=== PATIENT | female | born 1940 | race Caucasian/White ===

== ENCOUNTER 2016-07-10 09:52 | Outpatient (RCR) | payer MEDICARE ==
--- OUTSIDE RECORDS SUMMARY | 2016-05-16 10:18 | XMS REPORT | Continuity of Care Document ---
Author Author [facility] Organization [facility] Address Unknown Phone Unavailable Care Team Providers Care Media Law Faculty Member Name Role Phone SHAKIRA SERRANO MD PCP Insurance Providers Payer Name Policy Number Subscriber Name Relationship Wps Medicare [id number] Kierra Kulkarni 18 Self / Same As Patient Blue Cross [facility] Supp [id number] Kierra Kulkarni 18 Self / Same As Patient Advance Directives Directive Response Recorded Date/Time Advance Directives Yes 03/23/16 10:08am Health Care Power of Youtuber Yes 03/23/16 10:08am Organ Donor No 03/23/16 10:08am Resuscitation Status Full Code 03/23/16 10:08am Problems No problem information available. Medications Current Home Medications Medication Dose Units Route Directions Days/Qty Instructions Start Date Naproxen 500 Mg 1 Each Oral Bid - Tid Prn 60 12/01/12 Amlodipine Besylate 5 Mg 5 Mg Oral Daily 03/23/16 Potassium Chloride 10 Meq 10 Meq Oral Daily 03/23/16 Ascorbate Calcium/Bioflavonoid 1 Each 1 Each Oral Daily 03/23/16 Melatonin 5 Mg 5 Mg Oral Bedtime 03/23/16 Diphenhydramine Hcl 25 Mg 12.5 Mg Oral Bedtime 03/23/16 Calcium Citrate/Vitamin D3 1 Each 1,200 Mg Oral Daily 03/23/16 Multivitamin/Iron/Folic Acid 1 Each 1 Each Oral Daily 03/23/16 Cholecalciferol (Vitamin D3) 2,000 Unit 2,000 Unit Oral Daily Hydrocodone/Acetaminophen 1 Each 1 Each Oral Every 4HRS as needed for Pain 03/23/16 Nitrofurantoin Monohyd/M-Cryst 100 Mg 1 Tab Oral Twice A Day 10 Phenazopyridine Hcl 200 Mg 1 Tab Oral Three Times A Day as needed for Spasms 20 03/23/16 Past Home Medications Medication Directions Ordered Status Folic Acid/Mv,Fe,Other Min 1 Each Tab.chew, 1 Each Oral Daily 01/10/10 Discontinued Ascorbic Acid/Bioflavonoids 1 Tab Tablet, 1 Tab Oral Daily 01/10/10 Discontinued [Gerry Fish Oil] , 1 Ea Oral Daily 01/10/10 Discontinued [Potassium] , 10/20/11 Discontinued [Hydrocodone] , 10/20/11 Discontinued Ciprofloxacin 500 Mg Tablet, 1 Tab Oral Twice A Day 10/20/11 Discontinued Potassium Chloride (Micro K) 10 Meq Capsule.sa, 1 Each Oral Daily With Food 10/22/11 Discontinued Lorazepam (Ativan) 0.5 Mg Tablet, 1 Each Oral Three Times A Day And Prn 10/21 Discontinued Amlodipine Besylate (Norvasc 5 Mg) 5 Mg Tablet, 5 Mg Oral Daily 10/22/11 Discontinued Hydrochlorothiazide 12.5 Mg Tablet, 1 Each Oral Daily 10/22/11 Discontinued Ciprofloxacin 500 Mg Tbmp.24hr, 1 Tab Oral Twice A Day 10/22/11 Discontinued Loperamide Hcl (Imodium) 2 Mg Capsule, 1 Tab Oral As Directed 10/26/11 Discontinued Citalopram Hydrobromide 10 Mg Tablet, 1 Each Oral Daily 10/26/11 Discontinued Potassium 99 Mg Tablet, 99 Mg Oral 12/01/12 Discontinued [Bp Med] , 12/01/12 Discontinued Social History Social History Problem Response Recorded Date/Time Alcohol Use Denies Use 12/01/2012 9:45am Recreational Drug Use No 12/01/2012 9:45am Recent Foreign Travel No 03/23/2016 10:08am Recent Infectious Disease Exposure No 03/23/2016 10:08am Hospitalization with Isolation Denies 03/23/2016 1:47pm Smoking Status Current Everyday Smoker 03/23/2016 10:06am Type Used Cigars 03/23/2016 10:06am Hospitalization with Isolation Denies 03/23/2016 1:47pm Query Response Start Date Stop Date Smoking Status Current Everyday Smoker Hospital Discharge Instructions Patient Instructions Physician Instructions New, Converted, or Re-newed RX: RX on Chart Plan Keep previuos appointment Increase oral fluids for 48 hours and then as needed. Diet and Activity as tolerated. If questions or concerns contact your physician Or seek help at emergency department. Plan of Care Discharge Date 03/23/16 1:40pm Instructions/Education Provided ANESTHESIA INSTRUCTIONS POSTOP Ureteroscopic Kidney Stone Removal (DC) Prescriptions See Medication Section Functional Status Query Response Date Recorded Patient Orientation Person Place Time Situation March 23, 2016 1:47pm Allergies, Adverse Reactions, Alerts No known allergies. Immunizations No immunization records. Vital Signs Acute Vital Signs Vital Response Date/Time Temperature (Fahrenheit) 97.7 degrees F (97.6 - 99.5) 03/23/2016 1:40pm Temperature (Calculated Celsius) 36.46820 degrees C (36.4 - 37.5) 03/23/2016 1:25pm Temperature Source Temporal 03/23/2016 1:40pm Pulse Rate (adult) 74 bpm (60 - 90) 03/23/2016 1:40pm Respiratory Rate 18 bpm (12 - 24) 03/23/2016 1:40pm O2 Sat by Pulse Oximetry 98 % (88 - 100) 03/23/2016 1:40pm Blood Pressure 150/76 mm Hg 03/23/2016 1:40pm Blood Pressure Mean 110 mm Hg 03/23/2016 10:08am Pain Numeric Pain Scale 0 03/23/2016 1:40pm Pain Intensity 0 03/23/2016 1:25pm Height (Feet) 5 feet 03/23/2016 10:12am Height (Inches) 3.00 inches 03/23/2016 10:12am Height (Calculated Centimeters) 160.415306 cm 03/23/2016 10:12am Weight (Pounds) 83 pounds 03/23/2016 10:12am Weight (Ounces) 9.6 oz 03/23/2016 10:12am Weight (Calculated Grams) 47715.32 gm 03/23/2016 10:12am Weight (Calculated Kilograms) 37.168804 kilograms 03/23/2016 10:12am Calculated BMI 14.8 03/23/2016 10:12am Capillary Refill Capillary Refill Less Than 3 Seconds 03/23/2016 10:08am Results Laboratory Results Test Name Result Units Flags Reference Collection Date/Time Result Date/ Time Comments White Blood Count 5.3 10^3/uL 4.3-11.0 03/13/2016 10:02am 03/13/2016 10 :09am Red Blood Count 4.09 10^6/uL L 4.35-5.85 03/13/2016 10:03/13/2016 10 :09am Hemoglobin 13.3 G/DL 11.5-16.0 03/13/2016 10:03/13/2016 10:09am Hematocrit 40 % 35-52 03/13/2016 10:03/13/2016 10:09am Mean Corpuscular Volume 98 FL 80-99 03/13/2016 10:am 03/13/2016 10: 09am Mean Corpuscular Hemoglobin 33 PG 25-34 03/13/2016 10:03/13/2016 10:09am Mean Corpuscular Hemoglobin Concent 33 G/DL 32-36 03/13/2016 10:am 10:09am Red Cell Distribution Width 12.6 % 10.0-14.5 03/13/2016 10:am 2015 10:09am Platelet Count 184 10^3/uL 130-400 03/13/2016 10:am 03/13/2016 10: 09am Mean Platelet Volume 9.7 FL 7.4-10.4 03/13/2016 10:am 03/13/2016 10: 09am Neutrophils (%) (Auto) 73 % 42-75 03/13/2016 10:am 03/13/2016 10: 09am Lymphocytes (%) (Auto) 18 % 12-44 03/13/2016 10:03/13/2016 10: 09am Monocytes (%) (Auto) 9 % 0-12 03/13/2016 10:am 03/13/2016 10:09am Eosinophils (%) (Auto) 1 % 0-10 03/13/2016 10:03/13/2016 10:09am Basophils (%) (Auto) 0 % 0-10 03/13/2016 10:02am 03/13/2016 10:09am Neutrophils # (Auto) 3.9 X 10^3 1.8-7.8 03/13/2016 10:03/13/2016 10:09am Lymphocytes # (Auto) 0.9 X 10^3 L 1.0-4.0 03/13/2016 10:02am 03/13/2016 10:09am Monocytes # (Auto) 0.5 X 10^3 0.0-1.0 03/13/2016 10:02am 03/13/2016 10: 09am Eosinophils # (Auto) 0.0 10^3/uL 0.0-0.3 03/13/2016 10:02am 03/13/2016 10:09am Basophils # (Auto) 0.0 10^3/uL 0.0-0.1 03/13/2016 10:02am 03/13/2016 10 :09am Urine Color YELLOW 02/21/2016 1:15pm 02/21/2016 1:50pm Urine Clarity VERY CLOUDY * 02/21/2016 1:15pm 02/21/2016 1:50pm Urine pH 6 5-9 02/21/2016 1:15pm 02/21/2016 1:50pm Urine Specific [place] 1.015 * 1.016-1.022 02/21/2016 1:15pm 2015 1:50pm Urine Protein 2+ * NEGATIVE 02/21/2016 1:15pm 02/21/2016 1:50pm Urine Glucose (UA) NEGATIVE NEGATIVE 02/21/2016 1:15pm 02/21/2016 1: 50pm Urine RBC (Auto) 2+ * NEGATIVE 02/21/2016 1:15pm 02/21/2016 1:50pm Urine Ketones NEGATIVE NEGATIVE 02/21/2016 1:15pm 02/21/2016 1:50pm Urine Nitrite NEGATIVE NEGATIVE 02/21/2016 1:15pm 02/21/2016 1:50pm Urine Bilirubin 1+ * NEGATIVE 02/21/2016 1:15pm 02/21/2016 1:50pm CONFIRMATORY ICTOTEST=POSITIVE Urine Urobilinogen 1 MG/DL NORMAL 02/21/2016 1:15pm 02/21/2016 1:50pm Urine Leukocyte Esterase 3+ * NEGATIVE 02/21/2016 1:15pm 02/21/2016 1: 50pm Urine RBC 10-25 /HPF * 02/21/2016 1:15pm 02/21/2016 1:50pm Urine WBC 50-100 /HPF * 02/21/2016 1:1502/21/2016 1:50pm Urine Bacteria FEW /HPF * 02/21/2016 1:1502/21/2016 1:50pm Urine Squamous Epithelial Cells 25-50 /HPF * 02/21/2016 1:152015 1:50pm Urine Crystals NONE /LPF 02/21/2016 1:15pm 02/21/2016 1:50pm Urine Casts PRESENT /LPF 02/21/2016 1:02/21/2016 1:50pm Urine Hyaline Casts 2-5 /LPF * 02/21/2016 1:1502/21/2016 1:50pm Urine Mucus SMALL /LPF * 02/21/2016 1:15pm 02/21/2016 1:50pm Urine Culture Indicated YES 02/21/2016 1:02/21/2016 1:50pm Sodium Level 140 MMOL/L 135-145 03/13/2016 10:02am 03/13/2016 10:35am Potassium Level 3.6 MMOL/L 3.6-5.0 03/13/2016 10:0203/13/2016 10: 35am Chloride Level 100 MMOL/L 98-107 03/13/2016 10:02am 03/13/2016 10:35am Carbon Dioxide Level 32 MMOL/L 21-32 03/13/2016 10:02am 03/13/2016 10: 35am Anion Gap 8 MMOL/L 5-14 03/13/2016 10:02am 03/13/2016 10:35am Blood Urea Nitrogen 6 MG/DL L 7-18 03/13/2016 10:0203/13/2016 10:35am Creatinine 0.84 MG/DL 0.60-1.30 03/13/2016 10:02am 03/13/2016 10:35am BUN/Creatinine Ratio 7 03/13/2016 10:0203/13/2016 10:35am Estimat Glomerular Filtration Rate > 60 03/13/2016 10:022015 10:35am GFR INTERPRETIVE DATA UNITS FOR ESTIMATED GFR (eGFR): mL/min/1.73 M2 REFERENCE RANGE FOR ESTIMATED GFR (eGFR) eGFR NORMAL eGFR >60 MODERATELY DECREASED eGFR 30-59 SEVERLY DECREASED eGFR 15-29 KIDNEY FAILURE <15 (OR DIALYSIS) Glucose Level 123 MG/DL H 70-105 03/13/2016 10:0203/13/2016 10:35am Calcium Level 9.1 MG/DL 8.5-10.1 03/13/2016 10:02am 03/13/2016 10:35am Total Bilirubin 0.6 MG/DL 0.1-1.0 03/13/2016 10:02am 03/13/2016 10: 35am Alkaline Phosphatase 93 U/L 40-136 03/13/2016 10:02am 03/13/2016 10: 35am Aspartate Amino Transf (AST/SGOT) 27 U/L 5-34 03/13/2016 10:02am 2015 10:35am Alanine Aminotransferase (ALT/SGPT) 14 U/L 0-55 03/13/2016 10:02am 03/2016 10:35am Lactate Dehydrogenase 215 U/L 125-220 03/13/2016 10:02am 03/13/2016 10: 35am Total Protein 7.0 G/DL 6.4-8.2 03/13/2016 10:02am 03/13/2016 10:35am Albumin 4.0 G/DL 3.2-4.5 03/13/2016 10:02am 03/13/2016 10:35am Urine 5-HIAA mg/L 24.4 MG/L 03/13/2016 12:00pm 03/20/2016 9:24am Urine 5-HIAA mg/day 24 H MG/D 0-15 03/13/2016 12:00pm 03/20/2016 9: 24am Urine 5-HIAA/Creatinine Ratio 79 H mg/gCR 0-14 03/13/2016 12:00pm 9:24am Urine 5-HIAA Interpretation SEE FOOTNOTE 03/13/2016 12:00pm 2015 9:24am INTERPRETIVE INFORMATION: 5-Hydroxyindoleacetic Acid (HIAA), Urine 5-Hydroxyindoleacetic acid (5-HIAA) results are expressed as a ratio to creatinine excretion (mg/g IC DESIGNER STANDARD CELLS). HIAA mass per day (mg/d) is not reported if urine collection is random or other than 24 hours, or if urine volume less than 400 mL/d. No reference interval is available for results reported in units of mg/L. Increased urine 5-HIAA concentration is common and may be the result of improper specimen collection, consumption of serotonin containing foods or dietary supplements, drug interference, or malabsorption syndromes. Significant elevation (ten times the upper reference limit) of urine 5-HIAA may indicate the presence of a carcinoid tumor. Test developed and characteristics determined by [facility]. See Compliance Statement B: [employer] Performed by [facility], [address] [place] [id number] www.[employer], Bi Alcantar MD - Lab. Director Urine Creatinine mg/Day 302 L MG/D 500-1400 03/13/2016 12:00pm 2015 9:24am Urine Creatinine (5-HIAA) 31 MG/DL 03/13/2016 12:00pm 03/20/2016 9: 24am Vitamin D 25-Hydroxy 28 ng/mL L 30-100 03/13/2016 10:02am 03/14/2016 7: 38am Fluorescein dye has been shown to affect the Vitamin D assay and results may be falsely elevated. Patients that have had a procedure using this dye should be deferred 72 hours prior to blood samples drawn for this assay. Test performed at [facility], CLIA# [id number] [address] [place] [address] Chromogranin A 646 ng/mL H 0-95 03/13/2016 10:02am 03/16/2016 7:51am INTERPRETIVE INFORMATION: Chromogranin A This test is performed using the [employer] [id number] kit. Results obtained with different methods or kits cannot be used interchangeably. See Compliance Statement D: [employer] Performed by [facility], [address] [place] [address] www.[employer], Bi Alcantar MD - Lab. Director Pending Laboratory Results Test Name Collection Date/Time Microbiology Results Procedure Source Result Collection Date/Time Result Date/Time Urine Culture Urine, Clean Catch ENTEROBACTER AEROGENES 02/21/2016 1:15pm 02/23/2016 9:43am ESCHERICHIA COLI 02/21/2016 1:15pm 02/23/2016 9:43am Pending Microbiology Results Procedure Source Collection Date/Time Procedures No known history of procedures. Encounters Encounter Location Arrival/Admit Date Discharge/Depart Date Attending Provider Departed [facility] 03/23/16 8:30am 1:40pm ESVIN LOVE MD Registered Clinic [facility] 03/21/16 10:31am ROMÁN HENSON Discharged Recurring [facility] 03/21/16 10:30am 11:59pm BUDDY DALLAS Registered Clinic [facility] 03/14/16 11:52am ROMÁN HENSON Registered Clinic [facility] 03/07/16 8:02am ROMÁN HENSON
[2016-05-16 10:28] LABS: BASOPHILS % (AUTO) 0 % (0-10); EOSINOPHILS % (AUTO) 1 % (0-10); LYMPHOCYTES # (AUTO) 1.1 X 10^3 (1.0-4.0); LYMPHOCYTES % (AUTO) 15 % (12-44); MEAN CORPUSCULAR HEMOGLOBIN 32 PG (25-34); MEAN CORPUSCULAR HGB CONC 34 G/DL (32-36); MEAN CORPUSCULAR VOLUME 96 FL (80-99); MONOCYTES # (AUTO) 0.6 X 10^3 (0.0-1.0); MONOCYTES % (AUTO) 8 % (0-12); NEUTROPHILS # (AUTO) 5.5 X 10^3 (1.8-7.8); NEUTROPHILS % (AUTO) 76 % (42-75); PLATELET COUNT 213 10^3/uL (130-400); RED BLOOD COUNT 3.95 10^6/uL (4.35-5.85); RED CELL DISTRIBUTION WIDTH 12.7 % (10.0-14.5); WHITE BLOOD COUNT 7.2 10^3/uL (4.3-11.0)
[2016-05-16 10:56] LABS: ALBUMIN 4.1 G/DL (3.2-4.5); BILIRUBIN,TOTAL 0.6 MG/DL (0.1-1.0); CALCIUM 9.2 MG/DL (8.5-10.1); CREATININE SERUM 1.41 MG/DL (0.60-1.30); POTASSIUM 3.3 MMOL/L (3.6-5.0); TOTAL PROTEIN 7.4 G/DL (6.4-8.2)
[2016-06-15 14:59] LABS: ALBUMIN 3.8 G/DL (3.2-4.5); BILIRUBIN,TOTAL 0.4 MG/DL (0.1-1.0); CALCIUM 8.9 MG/DL (8.5-10.1); CREATININE SERUM 1.58 MG/DL (0.60-1.30); POTASSIUM 3.9 MMOL/L (3.6-5.0)
[2016-06-26 10:05] LABS: BASOPHILS % (AUTO) 0 % (0-10); EOSINOPHILS % (AUTO) 1 % (0-10); LYMPHOCYTES # (AUTO) 1.3 X 10^3 (1.0-4.0); LYMPHOCYTES % (AUTO) 16 % (12-44); MEAN CORPUSCULAR HEMOGLOBIN 33 PG (25-34); MEAN CORPUSCULAR HGB CONC 34 G/DL (32-36); MEAN CORPUSCULAR VOLUME 96 FL (80-99); MONOCYTES # (AUTO) 0.6 X 10^3 (0.0-1.0); MONOCYTES % (AUTO) 8 % (0-12); NEUTROPHILS # (AUTO) 6.3 X 10^3 (1.8-7.8); NEUTROPHILS % (AUTO) 76 % (42-75); PLATELET COUNT 207 10^3/uL (130-400); RED BLOOD COUNT 3.65 10^6/uL (4.35-5.85); RED CELL DISTRIBUTION WIDTH 12.2 % (10.0-14.5); WHITE BLOOD COUNT 8.3 10^3/uL (4.3-11.0)
[2016-06-26 10:55] LABS: BILIRUBIN,TOTAL 0.5 MG/DL (0.1-1.0); CALCIUM 9.4 MG/DL (8.5-10.1); CREATININE SERUM 2.09 MG/DL (0.60-1.30); POTASSIUM 3.7 MMOL/L (3.6-5.0); TOTAL PROTEIN 7.5 G/DL (6.4-8.2)
[2016-07-01 15:32] LABS: 5 HIAA SEROTONIN URINE MG/L 42.9 MG/L; 5HIAA CREATININE 47 MG/DL
[2016-07-01 15:33] LABS: 5 HIAA SEROTONIN URINE RATIO 91 mg/gCR (0-14)
[2016-07-02 07:20] LABS: 5 HIAA URINE INTERPRETATION SEE FOOTNOTE
[~2016-07-10 09:52] MED LIST: AMLO5TAB2 PO; ASCO1TAB12 PO; ASCO1TAB17 PO; BP MED; CALC-696 PO; CHOL200014 PO; CIPR-17 PO; CITA10TA70 PO; CPR500T PO; DIPH25CA79 PO; FLU TRIvalent (5 YOA+) 2016-17 (CANCER CTR) 0.5 ML IM ONE; FOLI1TAB10 PO; FOLI1TAB6 PO; HYDR-3812 PO; HYDR12.56 PO; HYDROCODONE; LOPE2CAP PO; LORA0.5T PO; MELA5CAP PO; NAPR-243 PO; NITR-65 PO; OCTREOTIDE LAR 30 MG SANDOSTATIN IM SCH; PHEN-640 PO; POTA10CA43 PO; POTA99TA7 PO; POTASSIUM; [UNRECOGNIZED DRUG - OTHER] PO
== END 2016-08-14 | disposition home or self-care (01) ==
LOC: ONC 09:52
PROVIDERS: ATTEND Internal Medicine Hematology & Oncology
DX: C7A.021 Malignant carcinoid tumor of the cecum (principal); C78.7 Secondary malignant neoplasm of liver and intrahepatic bile duct; M81.0 Age-related osteoporosis without current pathological fracture; J44.9 Chronic obstructive pulmonary disease, unspecified; F17.210 Nicotine dependence, cigarettes, uncomplicated; Z85.51 Personal history of malignant neoplasm of bladder; Z79.899 Other long term (current) drug therapy; Z23 Encounter for immunization
CPT/HCPCS: 36415; 80053; 83497; 83615; 85025; 86316; 90471; 96372; 99213